=== PATIENT | male | born 2005 | race Caucasian/White ===

== ENCOUNTER 2025-09-09 18:08 | Emergency (ER) | payer OTHER ==
[~2025-09-09] VITALS: Ht 170.2 cm; Wt 67.3 kg
[2025-09-09] MEDS ORDERED: IBUP-1114 PO (18:26)
[2025-09-09 23:43] VITALS: BP 118/73; TEMP 98.8; O2SAT 98
== END 2025-09-09 23:48 | disposition home or self-care (01) ==
LOC: M ED 18:08
DX: S40.022A Contusion of left upper arm, initial encounter (principal); V00.222A Sledder colliding with stationary object, initial encounter; Y92.9 Unspecified place or not applicable; Y93.29 Activity, other involving ice and snow; Y99.9 Unspecified external cause status; Z79.1 Long term (current) use of non-steroidal anti-inflammatories (NSAID)